=== PATIENT | male | born 1990 | race Caucasian/White ===

== ENCOUNTER 2017-12-21 20:50 | Emergency (ER) | payer OTHER ==
[~2017-12-21] VITALS: Ht 172.7 cm; Wt 61.2 kg
[~2017-12-21 20:50] MED LIST: AMOXICILLIN 50500 MG PO; BACTRIM DS TAB1 EACH PO; IBUPROFEN 600600 M1 PO; PREDNISONE 20 M20 MG PO; PROMETHAZI6.25 MG/5 PO
[2017-12-21] MEDS ORDERED: KEFLEX500 M1 PO (21:00)
[2017-12-21] MEDS ORDERED: BACTRIM DS TAB1 EACH PO (21:00)
== END 2017-12-21 21:57 | disposition home or self-care (01) ==
LOC: ER 20:50
DX: L02.414 Cutaneous abscess of left upper limb (principal); F11.10 Opioid abuse, uncomplicated; F17.210 Nicotine dependence, cigarettes, uncomplicated

== ENCOUNTER 2018-05-08 21:05 | Emergency (ER) | payer OTHER ==
[~2018-05-08] VITALS: Ht 177.8 cm; Wt 61.2 kg
[~2018-05-08 21:05] MED LIST changes: +KEFLEX500 M1 PO
[2018-05-08 21:10] VITALS: BP 106/69
[2018-05-08] MEDS ORDERED: BACTRIM DS TAB1 EACH PO (22:02)
== END 2018-05-08 22:17 | disposition home or self-care (01) ==
LOC: ER 21:05
DX: L02.413 Cutaneous abscess of right upper limb (principal); F19.10 Other psychoactive substance abuse, uncomplicated; F17.210 Nicotine dependence, cigarettes, uncomplicated

== ENCOUNTER 2018-05-24 00:19 | Emergency (ER) | payer OTHER ==
[~2018-05-24] VITALS: Ht 177.8 cm; Wt 59.0 kg
[2018-05-24 00:27] VITALS: BP 102/42
[2018-05-24] MEDS ORDERED: CLEOCIN HCL150 MG PO (00:47)
== END 2018-05-24 01:45 | disposition home or self-care (01) ==
LOC: ER 00:19
DX: L03.115 Cellulitis of right lower limb (principal); F17.210 Nicotine dependence, cigarettes, uncomplicated

== ENCOUNTER 2020-02-10 17:38 | Emergency (ER) | payer OTHER ==
[~2020-02-10] VITALS: Ht 177.8 cm; Wt 63.5 kg
[~2020-02-10 17:38] MED LIST changes: +CLEOCIN HCL150 MG PO
[2020-02-10 18:55] LABS: ABSOLUTE NEUTROPHILS 4.8 thou/uL (1.4-8.2); EOSINOPHILS 3.5 % (0.0-3.0); HEMATOCRIT 32.9 % (42.0-52.0); LYMPHOCYTES 29.5 % (24.0-44.0); MCH 28.5 pg (26.0-34.0); MCHC 33.4 g/dL (28.0-37.0); MCV 85.4 fL (80.0-100.0); MONOCYTES 9.3 % (1.0-8.0); PLATELET COUNT 479 thou/uL (150-400); POLYS 56.7 % (36.0-66.0); RBC 3.85 mil/uL (4.50-6.00); RDW 14.3 % (10.5-14.5); WBC 8.4 thou/uL (4.0-11.0)
[2020-02-10 19:06] LABS: ANION GAP 8 mmol/L (7-16); BUN 9 mg/dL (7-18); CALCIUM 8.3 mg/dL (8.5-10.1); CHLORIDE 101 mmol/L (98-107); CO2 29 mmol/L (21-32); GLUCOSE 142 mg/dL (74-106); POTASSIUM 3.9 mmol/L (3.5-5.1); SODIUM 138 mmol/L (136-145)
[2020-02-10 19:12] LABS: ALBUMIN 3.1 g/dL (3.4-5.0); SGOT 21 U/L (15-37); SGPT 23 U/L (30-65); TOTAL BILIRUBIN < 0.1 mg/dL (<0.1-1.0); TOTAL PROTEIN 7.7 g/dL (6.4-8.2)
[2020-02-10] MEDS ORDERED: KEFLEX500 M1 PO ×2 (19:32→19:38)
[2020-02-10] MEDS ORDERED: BACTRIM DS TAB1 EACH PO ×2 (19:32→19:38)
[2020-02-10 22:38] VITALS: BP 118/64
== END 2020-02-10 22:31 | disposition home or self-care (01) ==
LOC: ER 17:38
PROVIDERS: Physician Assistant
DX: L03.113 Cellulitis of right upper limb (principal); R00.0 Tachycardia, unspecified; F17.210 Nicotine dependence, cigarettes, uncomplicated